=== PATIENT | female | born 1945 | race Caucasian/White ===

== ENCOUNTER 2019-12-03 09:51 | Emergency (ER) | payer MEDICARE ==
[~2019-12-03] VITALS: Ht 162.6 cm; Wt 77.7 kg
[2019-12-03 10:01] VITALS: BP 161/96
[2019-12-03] MEDS ORDERED: IV NORMAL SALINE 1,000ML 1,000 ML IV ONE (10:15)
[2019-12-03 10:36] LABS: BASO % 1 % (0-3); EOS # 0.1 x10^3/uL (0.0-0.7); EOS % 1 % (0-3); HEMOGLOBIN 15.3 g/dL (12.0-15.5); LYMPH # 1.2 x10^3/uL (1.0-4.8); LYMPH % 20 % (24-48); MEAN CORPUSCULAR HEMOGLOBIN 30 pg (25-35); MEAN CORPUSCULAR HGB CONC 33 g/dL (31-37); MEAN CORPUSCULAR VOLUME 89 fL (79-100); MONO # 0.8 x10^3/uL (0.0-1.1); MONO % 13 % (0-9); NEUT % 65 % (31-73); PLATELET COUNT 256 x10^3/uL (140-400); RED BLOOD COUNT 5.18 x10^6/uL (3.50-5.40); RED CELL DISTRIBUTION WIDTH 14.3 % (11.5-14.5); WHITE BLOOD COUNT 6.1 x10^3/uL (4.0-11.0)
[2019-12-03] MEDS ORDERED: METR500T PO (10:39)
[2019-12-03] MEDS ORDERED: CIPR500T94 PO (10:39)
--- NOTE | 2019-12-03 10:39 | PHYS DOC ---
Past History Past Medical History: Hypertension Past Surgical History: No Surgical History Smoking: Non-smoker Alcohol Use: None Drug Use: None General Adult EDM: Chief Complaint: DIARRHEA HPI: HPI: 74-year-old female presents with report of diarrhea x1 to 2 days. 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 Patient reports she is concerned she might have gotten "Salmonella "from them. Reports last year she had a similar episode in which stool studies were obtained at [facility]. Patient reports this episode is similar to her prior. Patient was seen by her PCP yesterday with stool studies pending. Patient reports she was not prescribed any antibiotics at that time. Reports symptoms continued today and therefore she presents to the ER for further evaluation. Denies any fever or chills. Denies nausea or vomiting. Reports anytime she eats or drinks anything it "goes right through her ". Denies hematochezia or melena. Denies lightheadedness or dizziness. Review of Systems: Review of Systems: Constitutional: Denies fever or chills Eyes: Denies redness or eye pain HENT: Denies nasal congestion or sore throat Respiratory: Denies cough or shortness of breath Cardiovascular: Denies chest pain or palpitations GI: Reports abdominal pain and diarrhea; denies vomiting : Denies dysuria or hematuria Musculoskeletal: Denies back pain or joint pain Integument: Denies rash or skin lesions Neurologic: Denies headache, focal weakness or sensory changes Complete systems were reviewed and found to be within normal limits, except as documented in this note. Current Medications: Current Meds: Current Medications Medications (Trade) Dose Ordered Sig/[facility] Start Time Stop Time Status Last Admin Dose Admin Sodium Chloride 1,000 ml @ 1,000 mls/hr 1X ONCE 12/03/19 10:15 12/03/19 11:14 12/03/19 10:12 1,000 MLS/HR Allergies: Allergies: Allergies Coded Allergies Type Severity Reaction Last Updated Verified No Known Drug Allergies 12/03/19 No Physical Exam: PE: Constitutional: Well developed, well nourished, no acute distress, non-toxic appearance HENT: Normocephalic, atraumatic Eyes: Conjunctiva normal, no discharge Neck: Normal range of motion, supple Lungs & Thorax: No respiratory distress, equal chest rise and fall Abdomen: Soft, no tenderness, no guarding/rebound tenderness/distention Skin: Warm, dry, no erythema, no rash Extremities: No tenderness, ROM intact, no edema Neurologic: Alert and oriented X 3, no focal deficits noted Psychologic: Affect normal, judgment normal Current Patient Data: Vital Signs: Vital Signs Date Time Temp Pulse Resp B/P (MAP) Pulse Ox O2 Delivery O2 Flow Rate FiO2 12/03/19 10:01 98.1 89 18 161/96 (117) 100 EKG: EKG: [] Radiology/Procedures: Radiology/Procedures: [] Course & Med Decision Making: Course & Med Decision Making Pertinent Lab studies reviewed. (See chart for details) Patient presents with report of diarrhea x2 days. Patient reports she thinks this is similar to prior episode of Salmonella. Reports she kills her own chickens. Reports she thinks that is where she got this current episode. Reports anytime she eats or drinks anything it "goes right through her ". Abdomen non-peritoneal. Afebrile. Reports stool sample already collected by her PCP and pending. Labs obtained and posted to chart. IV fluid hydration given. Empiric antibiotics prescribed with instructions to watch and wait 48 hours prior to initiation of antibiotic. Patient stable for discharge with outpatient follow-up with PCP. Discussed findings and plan with patient, who acknowledges understanding and agreement. Erasto Disclaimer: Erasto Disclaimer: This electronic medical record was generated, in whole or in part, using a voice recognition dictation system. Departure Departure: Impression: Primary Impression: Diarrhea Qualified Codes: R19.7 - Diarrhea, unspecified Disposition: HOME/RESIDENCE PRIOR TO ADM Condition: STABLE Referrals: BRENNA PATHAK MD (PCP) Patient Instructions: Diarrhea, [id number], Diet for Diarrhea, Adult Additional Instructions: Hold antibiotics for 48 hours. If symptoms worsen or for fever > 100.3 F after 48 hours then start antibiotics as prescribed. Scripts Metronidazole (FLAGYL) 500 Mg Tablet 1 TAB PO TID for Diarrhea for 7 Days, #21 TAB Prov: ARIEL MCMILLAN DO 12/03/19 Ciprofloxacin Hcl (CIPRO) 500 Mg Tablet 1 TAB PO BID for Diarrhea for 7 Days, #14 TAB Prov: ARIEL MCMILLAN DO 12/03/19 Justification of Admission: Justification of Admission: Justification of Admission Dx: N/A ARIEL MCMILLAN DO Dec 03, 2019 10:39
[2019-12-03 15:48] LABS: ALBUMIN 4.1 g/dL (3.4-5.0); ALBUMIN/GLOBULIN RATIO 1.1 (1.0-1.7); CALCIUM 8.9 mg/dL (8.5-10.1); CREATININE 0.9 mg/dL (0.6-1.0); POTASSIUM 3.9 mmol/L (3.5-5.1); TOTAL BILIRUBIN 0.7 mg/dL (0.2-1.0)
[2019-12-03 15:49] LABS: MAGNESIUM 2.2 mg/dL (1.8-2.4)
== END 2019-12-03 11:29 | disposition home or self-care (01) ==
LOC: ER 09:51
DX: R19.7 Diarrhea, unspecified (principal); I10 Essential (primary) hypertension
CPT/HCPCS: 36415; 80053; 83690; 83735; 85025; 85610; 85730; 96360; 99283; J7030

== ENCOUNTER 2020-04-12 10:44 | Inpatient (IN) | payer MEDICARE ==
[~2020-04-12] VITALS: Ht 193 cm; Wt 75.2 kg
[2020-04-12] VITALS (8 sets, daily range): BP systolic 120–139; BP diastolic 56–92
[~2020-04-12 10:44] MED LIST: CIPR500T94 PO; METR500T PO
--- NOTE | 2020-04-12 11:24 | PHYS DOC ---
Past History Past Medical History: Hypertension Past Surgical History: No Surgical History Smoking: Non-smoker Alcohol Use: None Drug Use: None Adult General Chief Complaint Chief Complaint: COUGH HPI HPI Patient is a 74-year-old female who presents for shortness of breath. Patient is a poor historian. States she was diagnosed with Covid " 2 or 3 weeks ago". Initially was not symptomatic but shortly after diagnosis started reporting URI- like symptoms. She has had persistent dry hacking cough but over the course of past 72 hours. Nothing known makes better or worse. Patient denies being in any focal pain just feels weak and fatigued. Timing of symptoms have been constant and worsening since onset. Patient called her primary care physician's office to discuss her ongoing fatigue and weakness and was advised to seek care at our ER. Denies any fever, does not have pulse oximetry at home and does not know what her oxygen saturations are, denies needing supplemental oxygen at home. No chest pain, admits shortness of breath with a nonproductive cough, no hemoptysis. No abdominal pain or urinary symptoms but admits episodes of x2 diarrhea this morning. She has had decreased p.o. intake and does not feel fit to take care of herself at home Review of Systems Review of Systems Fourteen body systems of review of systems have been reviewed. See HPI for pertinent positives and negative responses, other de la torre all other systems are negative, non-pertinent or non-contributory Allergies Allergies Allergies Coded Allergies Type Severity Reaction Last Updated Verified No Known Drug Allergies 12/03/19 No Physical Exam Physical Exam Constitutional: Well developed, well nourished, increased work of breathing but no obvious respiratory distress, ambulatory into ER room HENT: Normocephalic, atraumatic, bilateral external ears normal, bilateral tympanic membranes unremarkable, postnasal drip present otherwise oropharynx dry, no oral exudates, nose normal. Eyes: PERRLA, EOMI, conjunctiva normal, no discharge. Neck: Normal range of motion, no tenderness, supple, no stridor. Cardiovascular: Heart rate regular, sinus rhythm, no murmurs rubs or gallops Lungs & Thorax: Coarse breath sounds bilaterally, increased work of breathing without any overt distress or accessory muscle use, saturating 74% on room air Abdomen: Bowel sounds normal, soft, no tenderness, no masses, no pulsatile masses. Nonsurgical abdomen, no peritoneal signs Skin: Warm, dry, no erythema, no rash. Back: No tenderness, no CVA tenderness. Extremities: No tenderness, no cyanosis, no clubbing, ROM intact, no edema. Neurologic: Alert and oriented X 3, grossly normal motor & sensory function, no focal deficits noted. Psychologic: Anxious affect, judgement normal, mood normal. Current Patient Data Vital Signs Vital Signs Date Time Temp Pulse Resp B/P (MAP) Pulse Ox O2 Delivery O2 Flow Rate FiO2 04/12/20 11:56 80 25 143/80 (101) 95 8.0 04/12/20 11:26 Nasal Cannula 04/12/20 11:05 99.7 Lab Results Laboratory Tests Test 04/12/20 11:12 04/12/20 11:19 White Blood Count 14.5 x10^3/uL (4.0-11.0) Red Blood Count 4.97 x10^6/uL (3.50-5.40) Hemoglobin 14.3 g/dL (12.0-15.5) Hematocrit 44.3 % (36.0-47.0) Mean Corpuscular Volume 89 fL (79-100) Mean Corpuscular Hemoglobin 29 pg (25-35) Mean Corpuscular Hemoglobin Concent 32 g/dL (31-37) Red Cell Distribution Width 13.7 % (11.5-14.5) Platelet Count 427 x10^3/uL (140-400) Neutrophils (%) (Auto) 86 % (31-73) Lymphocytes (%) (Auto) 7 % (24-48) Monocytes (%) (Auto) 6 % (0-9) Eosinophils (%) (Auto) 0 % (0-3) Basophils (%) (Auto) 1 % (0-3) Neutrophils # (Auto) 12.4 x10^3uL (1.8-7.7) Lymphocytes # (Auto) 1.0 x10^3/uL (1.0-4.8) Monocytes # (Auto) 0.9 x10^3/uL (0.0-1.1) Eosinophils # (Auto) 0.0 x10^3/uL (0.0-0.7) Basophils # (Auto) 0.1 x10^3/uL (0.0-0.2) Prothrombin Time 10.8 SEC (9.4-11.4) Prothromb Time International Ratio 1.0 (0.9-1.1) Activated Partial Thromboplast Time 27 SEC (23-33) D-Dimer (Ngozi) 12.63 mg/L (0.00-0.50) Sodium Level 138 mmol/L (136-145) Potassium Level 3.6 mmol/L (3.5-5.1) Chloride Level 101 mmol/L (98-107) Carbon Dioxide Level 26 mmol/L (21-32) Anion Gap 11 (6-14) Blood Urea Nitrogen 7 mg/dL (7-20) Creatinine 0.9 mg/dL (0.6-1.0) Estimated GFR (Cockcroft-Gault) 61.0 BUN/Creatinine Ratio 8 (6-20) Glucose Level 121 mg/dL (70-99) Lactic Acid Level 2.4 mmol/L (0.4-2.0) Calcium Level 8.3 mg/dL (8.5-10.1) Total Bilirubin 0.6 mg/dL (0.2-1.0) Aspartate Amino Transf (AST/SGOT) 31 U/L (15-37) Alanine Aminotransferase (ALT/SGPT) 33 U/L (14-59) Alkaline Phosphatase 84 U/L (46-116) Creatine Kinase 37 U/L (26-192) Troponin I Quantitative 0.020 ng/mL (0-0.055) ZB-Lrv-S-Type Natriuretic Peptide 544 pg/mL (0-449) Total Protein 8.0 g/dL (6.4-8.2) Albumin 2.4 g/dL (3.4-5.0) Albumin/Globulin Ratio 0.4 (1.0-1.7) Blood Gas pH 7.49 (7.35-7.45) Blood Gas PCO2 32 mmHg (35-45) Blood Gas PO2 57 mmHg (71-100) Blood Gas HCO3 24 mmol/L (22-26) Arterial Bld O2 Saturation (Calc) 91 % (92-99) FiO2 48 % EKG EKG EKG ordered and interpreted by myself at 1142 as normal sinus rhythm at 90 bpm, unremarkable intervals, no axis deviation, no acute ischemic findings, no STEMI Radiology/Procedures Radiology/Procedures XR CHEST 1V 04/12/2020 11:45 AM INDICATION: Shortness of breath COMPARISON: None available TECHNIQUE: Portable frontal view of the chest is provided. FINDINGS: The cardiomediastinal silhouette is within normal limits. Consolidative changes identified in the lateral right upper lobe and left upper lobe including the lingula. Findings most favor multifocal pulmonary infiltrates. Patchy interstitial airspace disease identified in the lower lobes bilaterally. No significant pulmonary vascular congestion or pneumothorax. Hilar prominence may be associated with lymphadenopathy or vascular prominence. No pleural effusions. No suspicious osseous abnormality. IMPRESSION: Multifocal airspace consolidation involving the lateral right upper lobe, left upper lobe and lingula most favor multifocal pneumonia. Pulmonary edema. Less likely consideration. Recommend follow-up to resolution to assess for underlying neoplastic process. Electronically signed by: Inocencia James MD (04/12/2020 11:57 AM) [facility] CT angiography chest with contrast PQRS statement: CT scans at this facility use dose reduction including either automated exposure control, iterative reconstructions, and /or weight based radiation dosing via mA and kV modification when appropriate to reduce radiation dose to as low as reasonably achievable. Contrast: 100 mL Isovue-370 intravenous contrast. 3-D MIP reconstructions of the arteries were acquired. HISTORY: Shortness of breath. Positive Covid infection. COMPARISON: Chest x-ray April 12, 2020. FINDINGS: There is a heterogeneous enhancing right thyroid lobe 4 cm mass slightly deviates the trachea to the in the right carotid artery jugular vein to the right. Heart size is normal. No pulmonary artery emboli. Mild calcified plaque thoracic aorta. Small sliding hilum hernia gastroesophageal junction. Esophagus unremarkable. There is mild mediastinal and hilar adenopathy largest lymph node distal paratracheal station measuring 2 cm and largest hilar lymph nodes on the right measuring 2 cm. Tiny bilateral dependent pleural effusions with a thickness of 1 cm at the lung bases no drainable volume of pleural fluid present. Calcified granulomas in the chest. There are extensive bilateral pulmonary groundglass and consolidative opacities with opacities involving the majority of the lung parenchyma. Bones are unremarkable. IMPRESSION: 1. No pulmonary artery emboli. 2. Extensive groundglass and consolidative pulmonary opacities most typical of an infectious/inflammatory process. A component of ARDS noncardiogenic pulmonary edema would also be a possibility. Given the patient's diagnosis of Covid 19 infection, Covid pneumonia likely accounts for these findings. (Peripheral bilateral groundglass opacities with or without consolidation or crazy paving, or a reverse halo sign). Other processes such as influenza pneumonia and organizing pneumonia, as can be seen with drug toxicity and connective tissue disease, can cause a similar imaging pattern. Consider follow-up CT imaging in 3 months to document that these resolve. 3. 4 cm right thyroid lobe mass. 4. Mild mediastinal and hilar adenopathy. Electronically signed by: Wyatt Shipley MD (04/12/2020 1:37 PM) [id number] Heart Score HEART Score for Chest Pain: HEART Score for Chest Pain Response (Comments) Value History Slighlty/Non-Suspicious 0 ECG Normal 0 Age > 65 2 Risk Factors >3 Risk Factors or Hx CAD 2 Troponin < Normal Limit 0 Total 4 Risk Factors: Risk Factors: DM, Current or recent (<one month) smoker, HTN, HLP, family history of CAD, obesity. Risk Scores: Risk Factors: DM, Current or recent (<one month) smoker, HTN, HLP, family history of CAD, obesity. Course & Med Decision Making Course & Med Decision Making Pertinent Labs and Imaging studies reviewed. (See chart for details) Discussed most likely diagnosis of pneumonia in setting of known Covid positive individual. She is hypoxic and requiring supplemental oxygen, something which she does not typically require baseline health. She will require admission I contacted patient's PCP who also serves as hospitalist, Dr. Pathak, who agreed to accept patient into ICU status at [facility] I updated patient on proposed plan of care. I administered IV antibiotics and IV fluid resuscitation while in ER setting with mild relief in symptoms. Nonetheless, patient stabilized with all questions and concerns addressed prior to transport to [facility] for hospitalization Critical Care Time This patient required critical care. Due to the fact that the patient required a significant amount of one on one physician - patient contact time, ordering and review of studies, arranging urgent treatment with development of a management plan, evaluation of patients response to treatment with frequent reassessments, and discussions with other providers this patient required critical care time in excess of 30 minutes. Critical care time was indicated due to the inherent instability and/or potential for instability in this patient. The critical care time that is allocated to this patient is above and beyond any time spent on any other billable procedures performed on this patient. Erasto Disclaimer Dragon Disclaimer This electronic medical record was generated, in whole or in part, using a voice recognition dictation system. Departure Departure: Impression: Primary Impression: Multifocal pneumonia Additional Impressions: COVID-19 Nausea vomiting and diarrhea Disposition: 09 ADMITTED INPT THIS HOSP Admitting Physician: Juan Pathak Condition: STABLE Referrals: JUAN PATHAK MD (PCP) Problem Qualifiers NATALIE HORTON DO Apr 12, 2020 11:24
[2020-04-12] MEDS ORDERED: ASPIRIN CHEWABLE 81 MG TABLET. PO ONE (11:30)
[2020-04-12 11:49] LABS: BASO # 0.1 x10^3/uL (0.0-0.2); BASO % 1 % (0-3); EOS % 0 % (0-3); HEMATOCRIT 44.3 % (36.0-47.0); HEMOGLOBIN 14.3 g/dL (12.0-15.5); LYMPH % 7 % (24-48); MEAN CORPUSCULAR HEMOGLOBIN 29 pg (25-35); MEAN CORPUSCULAR HGB CONC 32 g/dL (31-37); MEAN CORPUSCULAR VOLUME 89 fL (79-100); MONO # 0.9 x10^3/uL (0.0-1.1); MONO % 6 % (0-9); NEUT # 12.4 x10^3uL (1.8-7.7); NEUT % 86 % (31-73); PLATELET COUNT 427 x10^3/uL (140-400); RED BLOOD COUNT 4.97 x10^6/uL (3.50-5.40); RED CELL DISTRIBUTION WIDTH 13.7 % (11.5-14.5); WHITE BLOOD COUNT 14.5 x10^3/uL (4.0-11.0)
[2020-04-12 11:54] LABS: BGAS PH 7.49 (7.35-7.45)
--- NOTE | 2020-04-12 11:59 | RAD ---
XR CHEST 1V 04/12/2020 11:45 AM INDICATION: Shortness of breath COMPARISON: None available TECHNIQUE: Portable frontal view of the chest is provided. FINDINGS: The cardiomediastinal silhouette is within normal limits. Consolidative changes identified in the lat eral right upper lobe and left upper lobe including the lingula. Findings most favor multifocal pulmo nary infiltrates. Patchy interstitial airspace disease identified in the lower lobes bilaterally. No significant pulmonary vascular congestion or pneumothorax. Hilar prominence may be associated with ly mphadenopathy or vascular prominence. No pleural effusions. No suspicious osseous abnormality. IMPRESSION: Multifocal airspace consolidation involving the lateral right upper lobe, left upper lobe and lingula most favor multifocal pneumonia. Pulmonary edema. Less likely consideration. Recommend follow-up to resolution to assess for underlying neoplastic process. Electronically signed by: Inocencia James MD (04/12/2020 11:57 AM) ANGUS
[2020-04-12 12:00] LABS: CALCIUM 8.3 mg/dL (8.5-10.1); CREATININE 0.9 mg/dL (0.6-1.0); POTASSIUM 3.6 mmol/L (3.5-5.1)
[2020-04-12] MEDS ORDERED: IV NORMAL SALINE 1,000ML 1,000 ML IV ONE (12:00)
[2020-04-12 12:15] LABS: ALBUMIN 2.4 g/dL (3.4-5.0); ALBUMIN/GLOBULIN RATIO 0.4 (1.0-1.7); TOTAL BILIRUBIN 0.6 mg/dL (0.2-1.0)
--- NOTE | 2020-04-12 12:21 | EKG ---
[address] [address] Test Date: 2020-04-12 Test Time: 11:32:38 Pat Name: ORIN BAUMAN Department: Room: Gender: F Outpatient Phlebotomist: SABRINA : 1945 Requested By: NATALIE HORTON Order Number: [id number] Reading MD: Measurements Intervals [place]ix Rate: 90 P: 34 ND: 158 QRS: 2 QRSD: 82 T: 48 QT: 336 QTc: 415 Interpretive Statements SINUS RHYTHM NO SPECIFIC ECG ABNORMALITIES RI6.02 No previous ECG available for comparison
[2020-04-12] MEDS ORDERED: IV NORMAL SALINE 1,000ML 1,000 ML IV SCH (12:30)
[2020-04-12] MEDS ORDERED: ACETAMINOPHEN 325 MG TABLET PO PRN (12:30)
[2020-04-12] MEDS ORDERED: IV NORMAL SALINE 50ML 50 ML ONE ×2 (13:02→13:04)
[2020-04-12] MEDS ORDERED: cefTRIAXone SODIUM 1 GM VIAL ONE ×2 (13:03→13:04)
[2020-04-12] MEDS ORDERED: IOHEXOL 350 MG/ML 100 ML VIAL. IV ONE (13:15)
--- NOTE | 2020-04-12 13:40 | RAD ---
CT angiography chest with contrast PQRS statement: CT scans at this facility use dose reduction including either automated exposure cont rol, iterative reconstructions, and /or weight based radiation dosing via mA and kV modification when appropriate to reduce radiation dose to as low as reasonably achievable. Contrast: 100 mL Isovue-370 intravenous contrast. 3-D MIP reconstructions of the arteries were acquir ed. HISTORY: Shortness of breath. Positive Covid infection. COMPARISON: Chest x-ray April 12, 2020. FINDINGS: There is a heterogeneous enhancing right thyroid lobe 4 cm mass slightly deviates the trach ea to the in the right carotid artery jugular vein to the right. Heart size is normal. No pulmonary a rtery emboli. Mild calcified plaque thoracic aorta. Small sliding hilum hernia gastroesophageal junct ion. Esophagus unremarkable. There is mild mediastinal and hilar adenopathy largest lymph node distal paratracheal station measuring 2 cm and largest hilar lymph nodes on the right measuring 2 cm. Tiny bilateral dependent pleural effusions with a thickness of 1 cm at the lung bases no drainable volume of pleural fluid present. Calcified granulomas in the chest. There are extensive bilateral pulmonary groundglass and consolidative opacities with opacities involving the majority of the lung parenchyma. Bones are unremarkable. IMPRESSION: 1. No pulmonary artery emboli. 2. Extensive groundglass and consolidative pulmonary opacities most typical of an infectious/inflamma tory process. A component of ARDS noncardiogenic pulmonary edema would also be a possibility. Given t he patient's diagnosis of Covid 19 infection, Covid pneumonia likely accounts for these findings. (Pe ripheral bilateral groundglass opacities with or without consolidation or crazy paving, or a reverse halo sign). Other processes such as influenza pneumonia and organizing pneumonia, as can be seen with drug toxicity and connective tissue disease, can cause a similar imaging pattern. Consider follow-up CT imaging in 3 months to document that these resolve. 3. 4 cm right thyroid lobe mass. 4. Mild mediastinal and hilar adenopathy. Electronically signed by: Wyatt Shipley MD (04/12/2020 1:37 PM) [id number]
[2020-04-12 14:07] LABS: BARBITURATES NEG (NEG); BENZODIAZEPINES NEG (NEG); CANNABINOIDS NEG (NEG); COCAINE NEG (NEG); METHADONE NEG (NEG); OPIATES NEG (NEG); PHENCYCLIDINE NEG (NEG)
[2020-04-12 14:08] LABS: AMPHETAMINE/METHAMPHETAMINE NEG (NEG)
[2020-04-12 14:29] LABS: CLARITY,URINE CLEAR; COLOR,URINE YELLOW
[2020-04-12 14:30] LABS: BILIRUBIN,URINE NEG (NEG); GLUCOSE,URINE NEG (NEG); NITRITE,URINE NEG (NEG); UROBILINOGEN,URINE 0.2 mg/dL (0.2 mg/dL)
[2020-04-12 14:32] LABS: BACTERIA,URINE FEW /HPF (0-FEW); SQUAMOUS EPITHELIAL CELL,UR MANY /LPF
--- NOTE | 2020-04-12 15:15 | NUR ---
patient arrived to unit via EMS from ED. She is drowsy, oriented, with O2 at 8Lpm via high flow nasal cannula; SpO2 is in the mid to low 80%s. Patient adjusted in bed, increased O2, SpO2 improved. Patient oriented to room, she states she jsut wants to get some rest and requested more blankets. Will continue to monitor and report to oncoming shift.
[2020-04-12] MEDS ORDERED: LISI-334 PO (16:26)
[2020-04-12] MEDS ORDERED: AMLO-186 PO (16:26)
[2020-04-12] MEDS ORDERED: PIP/TAZO PER PHARMACY MC PRN (17:00)
[2020-04-12] MEDS ORDERED: levoFLOXacin PER PHARMACY 1 EACH. MC PRN (17:00)
[2020-04-12] MEDS ORDERED: guaiFENesin DM 200MG/20MG 10 ML SYRUP PO PRN (17:15)
[2020-04-12] MEDS ORDERED: ACETAMINOPHEN 500 MG TABLET PO PRN (17:15)
[2020-04-12] MEDS: AZITHROMYCIN 250 MG TABLET. PO SCH (18:15)
[2020-04-12] MEDS: DEXAMETHASONE SOD PHOS 4 MG/ML VIAL. IVP SCH (18:15)
[2020-04-12] MEDS: IPRATROPIUM/ALBUTEROL 20/100mcg/INH INHALER. INH SCH (19:34)
[2020-04-12] MEDS: PIPERACILLIN/TAZOBACTAM 3.375 GM in IV NORMAL SALINE 50ML 50 ML IV SCH (19:34)
[2020-04-12] MEDS ORDERED: IPRATRPIUM/ALBUTEROL 0.5/2.5MG 3 ML NEBU. INH SCH (20:00)
[2020-04-12] MEDS ORDERED: FUROSEMIDE 20 MG/2 ML VIAL IVP ONE (20:00)
[2020-04-12] MEDS ORDERED: ENOXAPARIN 40 MG/0.4 ML SYRINGE. SQ SCH (21:00)
[2020-04-12] MEDS: guaiFENesin/PS-EPHED 600/60MG 1 TAB TAB.ER.12H PO SCH (21:00)
--- NOTE | 2020-04-12 22:09 | NUR ---
Pt refused mucinex tonight. Attempted second time and pt states she will take it in the morning.
[2020-04-13] VITALS (11 sets, daily range): BP systolic 121–177; BP diastolic 71–101
[2020-04-13] MEDS: PIPERACILLIN/TAZOBACTAM 3.375 GM in IV NORMAL SALINE 50ML 50 ML IV SCH ×2 (01:11→08:00)
[2020-04-13] MEDS: DEXAMETHASONE SOD PHOS 4 MG/ML VIAL. IVP SCH ×2 (05:55)
--- NOTE | 2020-04-13 06:27 | NUR ---
Shift Note: Pt a/o x4 (requires reminding of plan of care), VSS (pt is requiring 15 liters O2 on non-rebreather to maintain sats>90%, will desat to 87% w/any activity and takes about 30 minutes to recover), banerjee draining clear yellow urine (foul odor noted this am)(1250mls out this shift after lasix 20mg IV given as ordered), no c/o pain or n/v at this time, attempted to obtain labs this am x2 unable to obtain (notified lab, they will have a senior laboratory technician come and draw), pt anticipating being here for several days.
[2020-04-13 07:29] LABS: BASO % 0 % (0-3); EOS % 0 % (0-3); HEMATOCRIT 39.7 % (36.0-47.0); HEMOGLOBIN 12.8 g/dL (12.0-15.5); LYMPH # 0.6 x10^3/uL (1.0-4.8); LYMPH % 6 % (24-48); MEAN CORPUSCULAR HEMOGLOBIN 29 pg (25-35); MEAN CORPUSCULAR HGB CONC 32 g/dL (31-37); MEAN CORPUSCULAR VOLUME 90 fL (79-100); MONO # 0.2 x10^3/uL (0.0-1.1); MONO % 2 % (0-9); NEUT # 8.8 x10^3uL (1.8-7.7); NEUT % 92 % (31-73); PLATELET COUNT 277 x10^3/uL (140-400); RED BLOOD COUNT 4.41 x10^6/uL (3.50-5.40); RED CELL DISTRIBUTION WIDTH 13.5 % (11.5-14.5); WHITE BLOOD COUNT 9.6 x10^3/uL (4.0-11.0)
[2020-04-13 07:32] LABS: CALCIUM 8.2 mg/dL (8.5-10.1); CREATININE 0.8 mg/dL (0.6-1.0); GFR 69.9; POTASSIUM 3.8 mmol/L (3.5-5.1)
[2020-04-13] MEDS: IPRATROPIUM/ALBUTEROL 20/100mcg/INH INHALER. INH SCH (08:00)
[2020-04-13] MEDS ORDERED: ALBUTEROL SULFATE 2.5 MG/3 ML NEBU. ONE (08:00)
--- NOTE | 2020-04-13 08:23 | RAD ---
Examination: Single frontal view of the chest HISTORY: History of increasing oxygen needs COMPARISON: CT from 04/12/2020 Findings/ impression: Low lung volumes and technique accentuates heart and pulmonary vascularity. Diffuse extensive airspac e opacities identified in the identified in the bilateral lungs likely pneumonia or covid pneumonia, again identified. Electronically signed by: Flo Maradiaga MD (04/13/2020 8:21 AM) [id number]
[2020-04-13] MEDS ORDERED: amLODIPine BESYLATE 5 MG TABLET PO SCH (09:00)
[2020-04-13] MEDS: AZITHROMYCIN 250 MG TABLET. PO SCH (09:00)
[2020-04-13] MEDS ORDERED: FUROSEMIDE 40 MG/4 ML VIAL IVP ONE (09:00)
[2020-04-13] MEDS ORDERED: LISINOPRIL 20 MG TABLET PO SCH (09:00)
[2020-04-13] MEDS: guaiFENesin/PS-EPHED 600/60MG 1 TAB TAB.ER.12H PO SCH (09:00)
[2020-04-13] MEDS ORDERED: PROPOFOL 100 ML IV PRN (10:00)
[2020-04-13] MEDS ORDERED: SUCCINYLCHOLINE 200 MG/10 ML VIAL. IV ONE (10:01)
[2020-04-13] MEDS ORDERED: ETOMIDATE 40 MG/20 ML VIAL. INJ ONE (10:01)
--- NOTE | 2020-04-13 11:00 | NUR ---
Patient was on a 15L NR at beginning of shift. Patient began to experience a drop in Oxygen saturation averaging in the mid to upper 80's. Dr. Siegel was called to report changes in the patient. A chest xray was ordered along with BIPAP. RT was called to assist with BIPAP. Dr. Siegel arrived to the unit and a decision was made to transfer the patient due to ARDS and patient condition. The patient and the Patients family were called for an update on the patients change of condition and plan of care. Everyone was in agreement to the transfer and the plan of care. Dr. Candelario was accepting physician at [place] and after reviewing patients records he requested that the patient be intubated before transferring to [place]. Therefore the ER physician was called to ICU to intubate patient due to respiratory distress. This RN along with RT, and Dick Paper Sales Representative from the ER assisted with the procedure. Dr Dong responded to the call and the following proceeded: RSI with succ 100mg and etomidate 20mg. Intubate with glidescope 7.5 cuffed ETT. Cords visualized. Color change on CO sensor Positive breath sounds bilateral. Patient was started on Propofol gtt Patient received 50mcg bolus X's 2 along with titration of the infusion to achieve sedation. Bed ICU 112 was obtained from [place], Report was called to the RESUME WRITER, EMS was called. Patient was transferred to [place] via EMS on ventilator with Propofol infusion at 22.5 mcg/kg/min.
--- NOTE | 2020-04-13 11:00 | RAD ---
Exam performed: One view chest HISTORY: Endotracheal tube placement. DATE OF SERVICE: 04/13/2020. COMPARISON: Single view chest from earlier today at 7:24 AM. FINDINGS: Interval intubation, the tip of the endotracheal tube is at the level of clavicles. Ongoing diffuse b ilateral airspace opacities are seen. There is gaseous distention of the stomach. IMPRESSION: As above Electronically signed by: Genevieve Rahman MD (04/13/2020 10:57 AM) [facility]
--- NOTE | 2020-04-13 11:14 | NUR ---
Intubation 0915hrs. Called to ICU to intubate patient due to respiratory distress. RSI with succ 100mg and etomidate 20mg Intubate with glidescope 7.5 cuffed ETT. Cords visualized. Color change on CO sensor Positive breath sounds bilateral Xray-- ETT confirmed No compliations. COvid precautions with use of PAPR
[2020-04-13 14:38] LABS: % LYMPHS 5 % (24-48); % MONOS 3 % (0-10); % SEGS 92 % (35-66)
[2020-04-13 14:39] LABS: PLT ESTIMATE ADEQUATE (ADEQUATE)
--- NOTE | 2020-04-13 18:55 | HP ---
ADMIT DATE: 04/12/2020 HISTORY OF PRESENT ILLNESS: A 74-year-old female came in through the Emergency Room with increased shortness of breath. The patient is a poor historian. She did have a COVID-19 three weeks ago and she had a dry hacking cough. She did well until about 2-3 days ago when she seems like the cough got progressively worse and she began to feel weakened. The patient called and was told to go to the Emergency Room. The patient came in and was noted to have bilateral lobe pneumonia and respiratory distress. The patient was admitted and placed on IV antibiotic therapy, placed in the ICU for further intervention as indicated. PAST MEDICAL HISTORY: Cardiac disorders, hypertension, history of pneumonia, endocrine disorders, history of COVID-19 as noted in early 03/2020. ALLERGIES: No known allergies. MEDICATIONS: She had been on Medrol Dosepak as well as Zithromax. HOME MEDICATIONS: Were that of Cipro, Flagyl, amlodipine 5 mg daily, lisinopril 20 mg. SOCIAL HISTORY: The patient denies smoking, alcohol or drug use. Full code. REVIEW OF SYSTEMS: The patient really not able to give much of a history. She is very weak and unable to give any meaningful answers. PHYSICAL EXAMINATION: GENERAL: The patient initially came in, she was 85% on room air. VITAL SIGNS: Blood pressure 167/77, respiratory rate 30, pulse 86, temperature 101.2. She was eventually placed on a rebreather and 15 liters to maintain her at 92%. The patient's respiratory rate of 30. HEENT: The patient otherwise head was atraumatic, normocephalic. Eyes: PERRLA without jaundice. Mouth and throat were normal. NECK: Supple, without JVD or thyromegaly. LUNGS: Primarily diminished with rhonchi noted throughout. CARDIOVASCULAR: Tachycardic. ABDOMEN: Soft, nontender. EXTREMITIES: No clubbing, cyanosis or edema. NEUROLOGIC: The patient was alert, but very slow in speech and unable to give much of a history and was a poor historian. LABORATORY STUDIES: The patient otherwise her labs showed white count of 14,000; hemoglobin and hematocrit of 12 and 40. Sodium and potassium 137 and 3.8, BUN and creatinine 15 and 0.8. Lactic acid 2.4. Blood gas: 7.49, pCO2 of 32, pO2 of 57. IMPRESSION: Acute respiratory failure with bilateral lobe pneumonia, previous history of COVID-19 within the last month, change in mental status, metabolic encephalopathy, sepsis. PLAN: The patient placed on Zosyn, Levaquin and azithromycin as well as Decadron 4 mg q. 6 hours along with breathing treatments. The patient became increasingly more dyspneic and was intubated by the ER physician and then later transferred down to [place] for further consultation with the doctors down there. BRENNA PATHAK MD DR: [email or web address] e JOB#: [id number] / [id number]
== END 2020-04-13 10:45 | disposition short-term general hospital (02) | DRG 871 ==
LOC: ER 10:44 → ICU 12:30
PROVIDERS: ADMIT Family Medicine; ATTEND Family Medicine
PROC: 5A0935A Assistance with Respiratory Ventilation, Less than 24 Consecutive Hours, High Flow/Velocity Cannula (ICD-10-PCS; 2020-04-12)
PROC: 0BH17EZ Insertion of Endotracheal Airway into Trachea, Via Natural or Artificial Opening (ICD-10-PCS; principal; 2020-04-13)
PROC: 5A1935Z Respiratory Ventilation, Less than 24 Consecutive Hours (ICD-10-PCS; 2020-04-13)
DX: A41.9 Sepsis, unspecified organism (principal); J18.9 Pneumonia, unspecified organism; J96.00 Acute respiratory failure, unspecified whether with hypoxia or hypercapnia; G93.41 Metabolic encephalopathy; I10 Essential (primary) hypertension; Z86.19 Personal history of other infectious and parasitic diseases
CPT/HCPCS: 36415; 71045; 71275; 80048; 80053; 80307; 81001; 82550; 82803; 83605; 83880; 84484; 85007; 85025; 85379; 85610; 85730; 87040; 87086; 93005; J0330; J0696; J1100; J1650; J1940; J1956; J2543; J2704; J7030